=== PATIENT | male | born 1960 | race Caucasian/White ===

== ENCOUNTER 2024-04-10 11:20 | Emergency (ER) | payer MEDICAID ==
[~2024-04-10] VITALS: Ht 170.2 cm; Wt 79.0 kg
[2024-04-10 11:21] VITALS: O2SAT 99
[2024-04-10 11:55] LABS: BASOPHILS % 0.5 % (0.0-2.0); EOSINOPHILS % 2.1 % (0.0-5.0); HEMATOCRIT. 35.7 % (42.0-52.0); MEAN CORPUSCULAR HEMOGLOBIN 29.5 pg (28.0-32.0); MEAN CORPUSCULAR HGB CONC 33.7 g/dL (31.0-37.0); MEAN CORPUSCULAR VOLUME 87.7 fL (80.0-94.0); MEAN PLATELET VOLUME 6.7 fl (7.4-10.4); MONOCYTES % 9.4 % (2.0-8.0); PLATELET 333 x1000/uL (130-400); RED BLOOD CELL COUNT 4.07 mill/uL (4.7-6.1); RED CELL DISTRIBUTION WIDTH 15.8 % (11.6-14.6); WHITE BLOOD COUNT 8.9 x1000/uL (4.5-11.0)
[2024-04-10] MEDS: METOCLOPRAMIDE HCL 10MG/2ML VIAL IV ONE (12:07)
[2024-04-10] MEDS: KETOROLAC 30MG/ML VIAL IV STA (12:07)
[2024-04-10] MEDS: SODIUM CHLORIDE 0.9% 1,000 ML IV ONE (12:07)
[2024-04-10 12:17] LABS: CHLORIDE 100 mEq/L (98-107); POTASSIUM 4.1 mEq/L (3.5-5.1); SODIUM 134 mEq/L (136-145)
[2024-04-10 12:18] LABS: CARBON DIOXIDE 27 mEq/L (21-32)
[2024-04-10 12:19] LABS: CALCIUM 9.3 mg/dL (8.7-10.4)
[2024-04-10 12:23] LABS: CREATININE 0.8 mg/dL (0.6-1.3); GLUCOSE 89 mg/dL (70-105); UREA NITROGEN BLOOD 12 mg/dL (9-23)
[2024-04-10 12:25] LABS: ALANINE AMINOTRANSFERASE 10 IU/L (10-49); ASPARTATE AMINOTRANSFERASE 16 IU/L (<34)
[2024-04-10 12:26] LABS: BILIRUBIN TOTAL 0.5 mg/dL (0.1-1.0)
[2024-04-10] MEDS ORDERED: LISI-186 PO (12:49)
[2024-04-10] MEDS: LISINOPRIL 5MG TABLET PO ONE (12:55)
[2024-04-10 13:31] VITALS: BP 130/76; PULSE 80; RESP 16; TEMP 36.78072; O2SAT 99
[2024-04-10 16:52] LABS: PROTEIN TOTAL 6.6 g/dL (6.0-8.3)
== END 2024-04-10 13:29 | disposition home or self-care (01) ==
LOC: ER 11:20
DX: R51.9 Headache, unspecified (principal); I10 Essential (primary) hypertension; Z86.718 Personal history of other venous thrombosis and embolism
CPT/HCPCS: 80053; 85025; 36415; 96374; 96375; 99285; J1885; J2765; J7030; Z7610